=== PATIENT | female | born 1960 | race Caucasian/White ===

== ENCOUNTER → 2025-06-19 | Outpatient (REF) | payer MEDICARE ==
[~2025-06-19] MED LIST: AMBIEN; HYDROXYZINE; NAPROXEN; OLANZAPINE5 MG PO; PAXIL20 MG PO; REQUIP; REQUIP XL2 MG PO; ROPINIROLE HCL1 MG PO; ZOLPIDEM TARTRA10 MG PO; ZYPREXA; ZYPREXA5 MG PO
== END ==
LOC: MAMMO 08:21 → EDSTATUS 09:00
PROVIDERS: ATTEND Family Medicine
DX: Z12.31 Encounter for screening mammogram for malignant neoplasm of breast (principal)
CPT/HCPCS: 77067